=== PATIENT | male | born 1940 | race Caucasian/White ===

== ENCOUNTER → 2021-06-20 | Outpatient (CLI) | payer MEDICARE ==
[~2021-06-20] MED LIST: ALLEGRA ALLERG180 MG PO; AUGMENTIN 875-1 EACH PO; CRESTOR20 MG PO; FINASTERIDE1 MG PO; FLOMAX 0.4 MG0.4 MG PO; L-LYSINE500 MG PO; METRONIDAZOLE GEL TOP; PERINDOPRIL ERBU4 MG PO; PROBIOTIC1 EACH PO; TOPROL XL25 MG PO; TRAMADOL HCL50 MG PO; TURMERIC PO; TYLENOL 500 MG500 MG PO; VINEGAR PO; VITAMIN B12 PO; VITAMIN C1000 MG PO; VITAMIN D PO; ZOFRAN4 MG PO
== END ==
LOC: NM 12:16
DX: R10.11 Right upper quadrant pain (principal); R93.2 Abnormal findings on diagnostic imaging of liver and biliary tract
CPT/HCPCS: 78226; A9537